=== PATIENT | female | born 1965 | race Caucasian/White ===

== ENCOUNTER 2016-09-10 07:35 | Emergency (ER) | payer SELFPAY ==
[~2016-09-10] VITALS: Ht 180.3 cm; Wt 90.0 kg
[2016-09-10 07:37] VITALS: BP 165/108; PULSE 88; RESP 14; O2SAT 98
--- NOTE | 2016-09-10 07:46 | ED.REPORT ---
HPI-Back Pain 40 and Over Date of Service Sep 10, 2016 ED Provider: Ilir Brooks DO Patient is a 51 year old female who reports to the ED complaining of severe back pain after heavy lifting last evening. Patient hurt her back in a twisting motion. She describes symptoms as a "tight pain and spasm in the lower back." Pt denies weakness or pain in legs but report slight numbness in lower left leg , bowel or urinary incontinence. Pt took 600 mg of Motrin and Tylenol which helped ease symptoms slightly. Nursing Notes Stated Complaint: BACK INJURY Chief Complaint: Back Pain or Injury Nursing Notes Reviewed: Yes Allergies: Coded Allergies: No Known Allergies (Unverified , 09/10/16) Scheduled PRN Cyclobenzaprine (Cyclobenzaprine) 5 Mg Tablet 1-2 TAB PO TID PRN PRN Spasm Hydrocodone-Acetaminophen 5-325 mg (Hydrocodone-Acetaminophen 5-325 mg) 1 Each Tablet 1-2 TABLET PO Q4H PRN PRN For Pain General Time Seen by MD: 07:46 Chief Complaint Back pain Hx Obtained From: Patient Arrived By: Walk-in Sudden in Onset?: Yes Onset Occurred: Yesterday Symptom Duration: Since onset Radiation: : Does not radiate Severity: Current: Moderate Severity: Maximum: Moderate Recent Healthcare: No recent doctor visit, No recent hospitalization Similar Sx Previous: No Past Medical History Past Medical History denies Past Surgical History denies Smoking History Unknown if Ever Smoker Social History Alcohol Use: "Social" Drug Use: Denies drug use Ambulatory Status Independent Review of Systems GI: Denies: Abdominal pain Musculoskeletal: Reports: Back pain, Extremity pain (left leg) Neurologic: Reports: Numbness (lower left extremity ), Denies: Bladder dysfunction, Bowel dysfunction Complete sys rev & neg: except as marked. Physical Exam Initial Vital Signs Initial VS: Reviewed Head / Eyes: Atraumatic, Normocephalic, PERRL ENT: Mucous membranes moist, Conjunctiva normal, No scleral icterus Skin: Warm, Dry, No cyanosis Psychiatric: Mood/affect normal, Behavior normal, Normal thought content General/Constitutional: Awake, Alert, Well appearing, Cooperative, Not toxic appearing Respiratory / Chest: Atraumatic, Breath sounds NL, Breath sounds = bilat, No respiratory distress, No rales, No rhonchi, No wheezing, No retractions Cardiovascular: Heart rate NL, Regular rhythm, Heart sounds NL, No gallop, No murmurs, No rubs Abdomen: Atraumatic, Soft, Non-tender, No guarding, No rebound Flank / Spine / Paraspinal: Positive: Thoracic spine tender... tenderness over midline lower back, left side over SI joint Neurologic: Oriented X3, Speech NL, No motor deficits, No sensory deficits Interpretation & Diagnostics Lab Results Interpretation Test 09/10/16 08:11 Hold Urine Received (Received) Re-Eval/Medical Decision Med Decision/Clinical Course 51-year-old female presenting with low back pain without red flags. She does have some sciatica down the left leg. There was no trauma to the low back but rather just a twisting injury. I have advised her to take anti-inflammatories, use ice, muscle relaxers and [place] as needed for breakthrough pain. She will follow up with her regular provider when she gets back to [place], return if worsening Counseled Regarding: Diagnosis, Lab results, Need for follow-up, When/why to return to ED Discharge & Departure Impression: Primary Impression: Low back pain Chronicity: acute Back pain laterality: left Sciatica presence: with sciatica Sciatica laterality: sciatica of left side Qualified Code: M54.42 - Lumbago with sciatica, left side Disposition: Home Discharge Condition All VS Reviewed: Yes Condition: Stable Patient Instructions: Sciatica (ED) Additional Instructions: I am sorry you for your back. Please take ibuprofen 600-800 mg 3 times a day as needed for the back pain. You may use [place] for breakthrough pain. Also take cyclobenzaprine as needed for muscle spasms. Please continue to use ice. Follow-up with your regular doctor when you return to [place]. Return for new or worsening symptoms. Scribe Attestation Portion of this note were transcribed by Clif Herbert and Elia Sy. I, Dr. Brooks, personally performed the history, physical exam, and medical decision-making: I reviewed and confirmed the accuracy for the information in the transcribed note. Signed by: fany Hudson, 09/10/16 0900 Ilir Brooks DO Sep 10, 2016 07:46 ELIA SY Sep 10, 2016 08:21 CLIF HERBERT Sep 10, 2016 09:06 the transcribed note. Signed by: fany Hudson, 09/10/16 0900 Ilir Brooks DO Sep 10, 2016 07:46 ELIA SY Sep 10, 2016 08:21 CLIF HERBERT Sep 10, 2016 09:06
[2016-09-10] MEDS ORDERED: HYDR-4003 PO (08:28)
[2016-09-10] MEDS ORDERED: CYCL5TAB PO (08:28)
[2016-09-10 08:51] VITALS: BP 142/90; PULSE 82; RESP 16; O2SAT 98
== END 2016-09-10 08:53 | disposition home or self-care (01) ==
LOC: SED 07:35
DX: M54.42 Lumbago with sciatica, left side (principal); X50.0XXA Overexertion from strenuous movement or load, initial encounter; W00.0XXA Fall on same level due to ice and snow, initial encounter; Y92.9 Unspecified place or not applicable; Y93.89 Activity, other specified; Y99.8 Other external cause status; Z87.891 Personal history of nicotine dependence